=== PATIENT | female | born 1990 | race Asian ===

== ENCOUNTER 2020-11-24 19:23 | Emergency (ER) | payer SELFPAY ==
[~2020-11-24] VITALS: Ht 167.6 cm; Wt 80.4 kg
[2020-11-24 20:23] LABS: BASO # 0.1 10^3/uL (0.0-0.2); BASO % 0.8 % (0.0-1.0); EOS # 0.2 10^3/uL (0.0-0.5); HEMATOCRIT 37.9 % (36.0-47.0); HEMOGLOBIN 11.9 g/dl (12.0-15.5); LYMPH # 2.2 10^3/uL (1.5-5.0); LYMPH % 28.3 % (24.0-44.0); MEAN CORPUSCULAR HEMOGLOBIN 26.3 pg (27.0-33.0); MEAN CORPUSCULAR HGB CONC 31.4 g/dl (32.0-36.5); MEAN CORPUSCULAR VOLUME 83.8 fl (80.0-96.0); MONO # 0.5 10^3/uL (0.0-0.8); MONO % 6.1 % (2.0-8.0); NEUTROPHILS # 4.9 10^3/uL (1.5-8.5); PLATELET COUNT, AUTOMATED 281 10^3/uL (150-450); RED BLOOD COUNT 4.52 10^6/uL (4.00-5.40); WHITE BLOOD COUNT 7.9 10^3/uL (4.0-10.0)
[2020-11-24] MEDS ORDERED: NS 1,000 ML IV ONE (20:45)
[2020-11-24 20:56] LABS: BLOOD UREA NITROGEN 15 MG/DL (7-18); CALCIUM LEVEL 9.5 MG/DL (8.5-10.1); CARBON DIOXIDE LEVEL 31 MEQ/L (21-32); CHLORIDE LEVEL 106 MEQ/L (98-107); CREATININE FOR GFR 0.97 MG/DL (0.55-1.30); GLOMERULAR FILTRATION RATE > 60.0 (>60); GLUCOSE, FASTING 96 MG/DL (70-100); HCG, SERUM QUANTITATIVE 91 MIU/ML; POTASSIUM SERUM 4.3 MEQ/L (3.5-5.1); SODIUM LEVEL 139 MEQ/L (136-145)
--- NOTE | 2020-11-24 22:55 | REPVR ---
PROCEDURE INFORMATION: Exam: US Non-obstetric Pelvis; Complete (transabdominal and transvaginal) Exam date and time: 11/24/20 (8:56pm) Age: 29 years old Clinical indication: Vaginal bleeding. . Possible early . Serum hCG = 91 units. TECHNIQUE: Imaging protocol: Transabdominal and transvaginal pelvic non-obstetric ultrasound. Complete examination. Real time ultrasound with image documentation. COMPARISON: No relevant prior studies available FINDINGS: The LMP is reported to be: 10/06/20 If the patient is , the menstrual history indicates an expected age = 7 weeks 2 days. The uterus is retroverted, measuring 7.8 x 5.2 x 5.1 cm in dimensions. No uterine mass is seen. The endometrium is thickened (12 mm thickness) and heterogeneous in texture. No IUP is seen. The uterus is 'empty'. No intrauterine gestational sac and no pole are identified. The right ovary measures 1.7 x 1.3 x 1.6 cm in size. The left ovary measures 2.6 x 1.5 x 2.9 cm in size. Small bilateral ovarian follicles. There is no evidence of ovarian torsion on Doppler evaluation. No free pelvic fluid is seen. No solid adnexal masses. IMPRESSION: No IUP is seen. The uterus is 'empty'. No intrauterine gestational sac and no pole are identified. The endometrium measures 12 mm in thickness. The ovaries are unremarkable. No evidence of ovarian torsion. If the patient is considered , diagnostic considerations include: early intrauterine ; missed ; failed early ; nonvisualized ectopic . Clinical and quantitative hCG correlation are needed. A follow-up sonogram in 6-10 days can be obtained to assess for development and heartbeat, if felt appropriate. In the appropriate clinical setting, an ectopic cannot be excluded. Electronically signed by: Dejah Moran On 11/24/2020 22:55:38 PM
[2020-11-24 23:56] VITALS: BP 136/78
== END 2020-11-25 00:32 | disposition home or self-care (01) ==
LOC: M ED 19:23
DX: O20.0 Threatened abortion (principal); O36.80X0 Pregnancy with inconclusive fetal viability, not applicable or unspecified; Z3A.00 Weeks of gestation of pregnancy not specified

== ENCOUNTER 2021-08-14 11:12 | Outpatient (CLI) | payer OTHER, SELFPAY ==
[~2021-08-14] VITALS: Ht 167.6 cm; Wt 97.2 kg
[2021-08-14 11:31] VITALS: BP 128/63
[2021-08-14] MEDS ORDERED: PRENTAB9 PO (12:31)
[2021-08-14] MEDS ORDERED: ACET-907 PO (12:31)
== END 2021-08-14 13:21 | disposition home or self-care (01) ==
LOC: M LDO 11:12
PROVIDERS: ATTEND Registered Nurse
DX: O98.513 Other viral diseases complicating pregnancy, third trimester (principal); U07.1 COVID-19; Z3A.34 34 weeks gestation of pregnancy; O99.013 Anemia complicating pregnancy, third trimester; D64.9 Anemia, unspecified
CPT/HCPCS: 59025; 87798; G0378; G0463

== ENCOUNTER 2021-09-06 21:03 | Outpatient (CLI) | payer OTHER ==
[~2021-09-06] VITALS: Ht 167.6 cm; Wt 101.2 kg
[~2021-09-06 21:03] MED LIST: ACET-907 PO; PRENTAB9 PO
[2021-09-06 21:21] VITALS: BP 136/82
== END 2021-09-06 21:52 | disposition home or self-care (01) ==
LOC: M LDO 21:03
PROVIDERS: ATTEND Obstetrics & Gynecology
DX: O47.1 False labor at or after 37 completed weeks of gestation (principal); Z3A.37 37 weeks gestation of pregnancy
CPT/HCPCS: 59025; G0463